=== PATIENT | female | born 1965 | race Two or more races ===

== ENCOUNTER 2016-11-13 08:21 | Emergency (ER) | payer MEDICAID ==
[~2016-11-13] VITALS: Ht 160 cm; Wt 61.2 kg
[~2016-11-13 08:21] MED LIST: KEFLEX500 MG ORAL; METFORMIN HCL500 M1 ORAL; NEURONTIN300 MG ORAL
[2016-11-13 08:29] VITALS: BP 135/89
[2016-11-13] MEDS ORDERED: NKM (08:35)
[2016-11-13] MEDS ORDERED: NEURONTIN100 MG ORAL (09:04)
[2016-11-13] MEDS ORDERED: METFORMIN HCL500 M1 ORAL (09:05)
[2016-11-13 09:26] VITALS: BP 118/80
--- NOTE | 2016-11-13 09:31 | Emergency Room Report ---
History of Present Illness General Chief Complaint: Pain Source: Patient Present Illness HPI Patient has a history of long-standing diabetes Is not taking medications Has not been taking her blood sugar reports that she has basically tried to do diet control Over the past several days patient has had increased pain and burning to the bottom of her right foot she also feels some pain to the right knee Denies any pelvic pain denies any fevers or chills denies any swelling of that leg denies any recent travel Denies any chest pain or pleurisy Discomfort in the foot is 5/10 and burning sensation worse with ambulation Allergies: Coded Allergies: FISH CONTAINING PRODUCTS (Unverified Allergy, Unknown, 06/05/15) Patient History Past Medical History: see triage record Pertinent Family History: none Last Menstrual Period: menopause Reviewed Nursing Documentation: PMH: Agreed, PSxH: Agreed Nursing Documentation-PMH Past Medical History: No History, Except For Hx Diabetes: Yes Review of Systems All Other Systems: negative except mentioned in HPI Physical Exam Vital Signs Date Time Temp Pulse Resp B/P Pulse Ox O2 Delivery O2 Flow Rate FiO2 11/13/16 08:29 98.0 82 16 135/89 98 Room Air Sp02 EP Interpretation: reviewed, normal General Appearance: well appearing, no apparent distress Head: normocephalic, atraumatic Eyes: bilateral eye EOMI, bilateral eye PERRL ENT: hearing grossly normal, normal pharynx, TMs + canals normal, uvula midline Neck: full range of motion, supple, no meningismus, no bony tend Respiratory: lungs clear, normal breath sounds, no rhonchi, no respiratory distress, no retraction, no accessory muscle use Cardiovascular #1: normal peripheral pulses, regular rate, rhythm, no edema, no gallop, no JVD, no murmur Gastrointestinal: normal bowel sounds, non tender, soft, no mass, no organomegaly, non-distended, no guarding, no hernia, no pulsatile mass, no rebound Genitourinary: no CVA tenderness Musculoskeletal: other - Evidence of varicose veins in the right leg, no signs of any ulcers or erythema, the leg is not swollen, good pulses distally Neurologic: oriented x3, responsive, 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 nml as tested, sensory intact Psychiatric: mood/affect normal Skin: normal color, no rash, warm/dry, palpation normal Lymphatic: normal inspection, no adenopathy Medical Decision Making Diagnostic Impression: Primary Impression: Diabetic peripheral neuropathy Additional Impression: Varicose vein of leg ER Course Patient has multiple differentials and consideration I do not suspect any obvious DVT patient's Accu-Chek was over 200 revealing evidence of fully controlled diabetes Patient has also had a previous visit with similar complaints Accu-Chek at that time was also elevated and the patient has had extremely poor followup I did notify the patient and the family member at diabetes is known as a silent killer She requires close followup, diabetes can cause small injuries and damage to the heart and other vessels And requires close followup by specialist, , Last Vital Signs Date Time Temp Pulse Resp B/P Pulse Ox O2 Delivery O2 Flow Rate FiO2 11/13/16 09:26 88 16 118/80 96 Room Air 11/13/16 08:29 98.1 Status: unchanged Disposition: HOME, SELF-CARE Condition: Stable Scripts Metformin Hcl* (METFORMIN HCL*) 500 Mg Tablet 500 MG ORAL TWICE A DAY, #60 TAB Prov: TEE GEE D.O. 11/13/16 Gabapentin* (NEURONTIN*) 100 Mg Capsule 100 MG ORAL THREE TIMES A DAY, #30 CAP 0 Refills Prov: TEE GEE D.O. 11/13/16 Referrals: NOT CHOSEN [facility]/,REFERRING (PCP) Patient Instructions: Varicose Veins, Diabetic Neuropathy Additional Instructions: Patient is provided with the discharge instructions notified to follow up with primary doctor in the next 2-3 days otherwise return to the er with any worsening symptoms. TEE GEE D.O. Nov 13, 2016 09:31
== END 2016-11-13 09:28 | disposition home or self-care (01) ==
LOC: EMR 08:56
DX: E11.42 Type 2 diabetes mellitus with diabetic polyneuropathy (principal); I83.91 Asymptomatic varicose veins of right lower extremity
CPT/HCPCS: 82962; 99282